=== PATIENT | male | born 1990 | race Caucasian/White ===

== ENCOUNTER 2019-02-25 02:50 | Emergency (ER) | payer OTHER ==
[2019-02-25 03:50] LABS: Barbiturates NEGATIVE (NEGATIVE); Benzodiazepines NEGATIVE (NEGATIVE); Cocaine NEGATIVE (NEGATIVE); METHAMPHETAM NEGATIVE (NEGATIVE); Methadone NEGATIVE (NEGATIVE); Opiates NEGATIVE (NEGATIVE); Phencyclidine NEGATIVE (NEGATIVE); THC Cannibis NEGATIVE (NEGATIVE)
[2019-02-25 03:58] LABS: Absolute Lymphocytes (CBC) 0.9 K/uL (0.7-4.9); Absolute Monocytes 1.3 K/uL (0.1-1.3); Absolute Neutrophil 6.2 K/uL (1.8-8.0); Basophils % 0.3 % (0-1.3); Eosinophils % 0.6 % (0-4.4); Hematocrit 41.7 % (39.6-49.0); Lymphocytes % 10.1 % (15.3-44.8); Monocytes % 15.5 % (3.3-12.3); RBC Red Blood Cell Count 4.57 M/uL (4.33-5.43)
[2019-02-25 04:01] LABS: Protime INR 1.15
[2019-02-25 04:35] LABS: ALT/SGPT 185 U/L (12-78); AST/SGOT 43 U/L (15-37); Albumin 3.9 g/dL (3.4-5.0); Alkaline Phosphatase 82 U/L (45-117); BUN Blood Urea Nitrogen 10 mg/dL (7-18); Bicarbonate 28 mmol/L (21-32); Bilirubin Direct 0.4 mg/dL (0-0.2); Bilirubin Total 1.6 mg/dL (0.2-1.0); Glucose Level 126 mg/dL (74-106); Potassium 3.6 mmol/L (3.5-5.1); Protein, Total 7.2 g/dL (6.4-8.2); Sodium Level 141 mmol/L (136-145)
[2019-02-25 05:13] LABS: Urine Blood TRACE (NEG); Urine Glucose NEGATIVE (NEG); Urine Protein 1+ (NEG)
--- NOTE | 2019-02-25 06:27 | EKG ---
Test Date: 2019-02-25 Test Time: 03:49:16 Supervisor Machine Setter: KENDRA MEASUREMENT RESULTS: Intervals: Rate: 90 DE: 128 QRSD: 92 QT: 322 QTc: 393 [place]: P: 35 DE: 128 QRS: 42 T: 36 INTERPRETIVE STATEMENTS: Normal sinus rhythm Normal ECG Compared to ECG 08/14/2016 20:02:17 Sinus arrhythmia no longer present Electronically Signed On 02-25-19 06:26:29 CDT by Jovan Trent
--- NOTE | 2019-02-25 10:35 | EDPHYS ---
Physician Documentation [facility] Name: Shubham Hdez Age: 29 yrs Sex: Male : 1990 Arrival Date: 02/25/2019 Time: 02:51 Bed 5 Private MD: ED Physician Quang Wilder HPI: 02/25 03:20 This 29 yrs old Male presents to ER via Ambulatory with complaints of mental pkl assesment. 03:20 The patient presents to the emergency department with depression. Onset: The pkl symptoms/episode began/occurred yesterday. Patient under care of Dr. Kim. Said medications not helping. Historical: - Allergies: 03:11 Amoxicillin; tl2 - Home Meds: 03:11 Depakote Oral for Depression associated with Bipolar Disorder [Active]; Lexapro Oral tl2 for Generalized Anxiety Disorder, Major Depressive Disorder [Active]; - PMHx: 03:11 ADD/ADHD; scoliosis; tourette syndrome; Depression; Anxiety; possible liver problem; tl2 hyperglycemia; - Immunization history:: Adult Immunizations. - Social history:: Smoking status: Patient uses tobacco products, denies chronic smoking, but will smoke occasionally. - Ebola Screening: : No symptoms or risks identified at this time. ROS: 03:20 Eyes: Negative for injury, pain, redness, and discharge, ENT: Negative for injury, pkl pain, and discharge, Neck: Negative for injury, pain, and swelling, Cardiovascular: Negative for chest pain, palpitations, and edema, Respiratory: Negative for shortness of breath, cough, wheezing, and pleuritic chest pain, Abdomen/GI: Negative for abdominal pain, nausea, vomiting, diarrhea, and constipation, Back: Negative for injury and pain, : Negative for injury, bleeding, discharge, and swelling, MS/Extremity: Negative for injury and deformity. 03:20 Skin: Positive for superficial lacerations left wrist. 03:20 Psych: Negative for anxiety, depression, suicide gesture, suicidal ideation. Exam: 03:20 Head/Face: Normocephalic, atraumatic. Eyes: Pupils equal round and reactive to light, pkl extra-ocular motions intact. Lids and lashes normal. Conjunctiva and sclera are non-icteric and not injected. Cornea within normal limits. Periorbital areas with no swelling, redness, or edema. ENT: Nares patent. No nasal discharge, no septal abnormalities noted. Tympanic membranes are normal and external auditory canals are clear. Oropharynx with no redness, swelling, or masses, exudates, or evidence of obstruction, uvula midline. Mucous membranes moist. Neck: Trachea midline, no thyromegaly or masses palpated, and no cervical lymphadenopathy. Supple, full range of motion without nuchal rigidity, or vertebral point tenderness. No Meningismus. Chest/axilla: Normal chest wall appearance and motion. Nontender with no deformity. No lesions are appreciated. Cardiovascular: Regular rate and rhythm with a normal S1 and S2. No gallops, murmurs, or rubs. Normal PMI, no JVD. No pulse deficits. Respiratory: Lungs have equal breath sounds bilaterally, clear to auscultation and percussion. No rales, rhonchi or wheezes noted. No increased work of breathing, no retractions or nasal flaring. Abdomen/GI: Soft, non-tender, with normal bowel sounds. No distension or tympany. No guarding or rebound. No evidence of tenderness throughout. Back: No spinal tenderness. No costovertebral tenderness. Full range of motion. Neuro: Awake and alert, GCS 15, oriented to person, place, time, and situation. Cranial nerves II-XII grossly intact. Motor strength 5/5 in all extremities. Sensory grossly intact. Cerebellar exam normal. Normal gait. 03:20 Musculoskeletal/extremity: Extremities: grossly normal except: noted in the left forearm: superficial lacerations. 04:39 Psych: Behavior/mood is cooperative, Affect is calm, Patient has no thoughts/intents to pkl harm self or others. Vital Signs: 03:11 BP 130 / 90; Pulse 110; Resp 18; Temp 98.9(TE); Pulse Ox 99% on R/A; Weight 77.11 kg; tl2 Height 5 ft. 10 in. (177.80 cm); Pain 0/10; 05:06 BP 109 / 75; Pulse 78; Resp 18; Pulse Ox 98% on R/A; tl2 09:00 BP 118 / 68; Pulse 68; Resp 15; Temp 97.8(TE); Pulse Ox 100% on R/A; Pain 0/10; hb 09:41 BP 122 / 74; Pulse 70; Resp 15; Pulse Ox 99% on R/A; Pain 0/10; hb 11:30 BP 119 / 66; Pulse 67; Resp 16; Pulse Ox 100% on R/A; Pain 0/10; hb 03:11 Body Mass Index 24.39 (77.11 kg, 177.80 cm) tl2 MDM: 02:59 Patient medically screened. pkl 07:40 Data reviewed: vital signs, nurses notes. Data interpreted: Pulse oximetry: on room air snw is 98 %. Interpretation: normal. Awaiting: Psychiatric information consultant. 08:42 Counseling: I had a detailed discussion with the patient and/or guardian regarding: snw [facility] here for assessment. 10:09 Counseling: I had a detailed discussion with the patient and/or guardian regarding: the snw historical points, exam findings, and any diagnostic results supporting the discharge/admit diagnosis, lab results, radiology results, the need to transfer to another facility, [facility] does not immediately have the required specialist. Physician consultation: Dr Landin was called at 10:10, was contacted at 10:10, regarding regarding transfer, patient's condition, to [facility] . 02/25 03:18 Order name: Acetaminophen; Complete Time: 06:21 pkl 02/25 03:18 Order name: Basic Metabolic Panel; Complete Time: 06:21 pkl 02/25 03:18 Order name: CBC with Diff; Complete Time: 06:21 pkl 02/25 03:18 Order name: ETOH Level; Complete Time: 06:21 pkl 02/25 03:18 Order name: Hepatic Function; Complete Time: 06:21 pkl 02/25 03:18 Order name: PT-INR; Complete Time: 06:21 pkl 02/25 03:18 Order name: Ptt, Activated; Complete Time: 06:21 pkl 02/25 03:18 Order name: Salicylate; Complete Time: 06:21 pkl 02/25 03:18 Order name: Urine Drug Screen; Complete Time: 06:21 pkl 02/25 03:18 Order name: EKG; Complete Time: 03:20 pkl 02/25 03:18 Order name: EKG - Nurse/Tech; Complete Time: 03:53 pkl 02/25 03:18 Order name: IV Saline Lock; Complete Time: 03:53 pkl 02/25 03:18 Order name: Labs collected and sent; Complete Time: 03:53 pkl 02/25 03:29 Order name: Urine Dipstick--Ancillary (enter results); Complete Time: 06:21 mw2 02/25 03:18 Order name: Urine Dipstick-Ancillary (obtain specimen); Complete Time: 03:53 pkl Administered Medications: No medications were administered Disposition: 19:03 Co-signature as Attending Physician, Quang Wilder MD. pkl Disposition: 02/25/19 10:34 Transfer ordered to Psych Facility. Diagnosis is Suicidal ideations. - Reason for transfer: Specialty. - Accepting physician is Dr. Landin. - Condition is Stable. - Problem is an acute exacerbation. - Symptoms are unchanged. Signatures: Dispatcher [employer] EDMS Quang Wilder MD MD pkl Leonela Jacobs, BANQUET KITCHEN SUPERVISOR-C BANQUET KITCHEN SUPERVISOR-Csnw Liana Naik, RN RN Juanita Romano RN RN tl2 Corrections: (The following items were deleted from the chart) 10:35 10:34 02/25/2019 10:34 Transfer ordered to Psych Facility. Diagnosis is Suicidal snw ideations. Reason for transfer: Specialty. Accepting physician is Dr. Priest. Condition is Stable. Problem is an acute exacerbation. Symptoms are unchanged. snw 10:36 10:09 Physician consultation: was called at 10:10, was contacted at 10:10, regarding snw regarding transfer, patient's condition, to [facility] , snw 13:17 10:35 02/25/2019 10:34 Transfer ordered to Psych Facility. Diagnosis is Suicidal hb ideations. Reason for transfer: Specialty. Accepting physician is Dr. Landin. Condition is Stable. Problem is an acute exacerbation. Symptoms are unchanged. snw
--- NOTE | 2019-02-25 10:35 | ER ---
Nurse's Notes [facility] Name: Shubham Hdez Age: 29 yrs Sex: Male : 1990 Arrival Date: 02/25/2019 Time: 02:51 Bed 5 Private MD: Diagnosis: Suicidal ideations Presentation: 02/25 03:05 Presenting complaint: Patient states: Tried to take 14 depakote pills yesterday and has tl2 two superficial lacerations to left wrist, pt reports having suicidal ideations yesterday but denies SI or HI at this time. States that his doctors have been changing his psych medications every 2 weeks for over a month. Pt is adamant that he is not suicidal at this time and does not believe he is a danger to himself. Transition of care: patient was not received from another setting of care. Onset of symptoms was February 23, 2019. Risk Assessment: Do you want to hurt yourself or someone else? Patient reports no desire to harm self or others. Other: report feeling suicidal yesterday and attempted to take 14 depakote pills. Initial Sepsis Screen: Does the patient meet any 2 criteria? HR > 90 bpm. Does the patient have a suspected source of infection? No. Patient's initial sepsis screen is negative. Care prior to arrival: None. 03:05 Method Of Arrival: Ambulatory tl2 03:05 Acuity: TREVIN 2 tl2 Triage Assessment: 03:11 General: Appears in no apparent distress. uncomfortable, Behavior is cooperative, tl2 appropriate for age, anxious, flat. Pain: Denies pain. Neuro: Level of Consciousness is awake, alert, obeys commands, Oriented to person, place, time, situation. Cardiovascular: Denies chest pain. Respiratory: Airway is patent Respiratory effort is even, unlabored, Respiratory pattern is regular, symmetrical. GI: No signs and/or symptoms were reported involving the gastrointestinal system. : No signs and/or symptoms were reported regarding the genitourinary system. Derm: Skin is pink, warm \\T\\ dry. Historical: - Allergies: 03:11 Amoxicillin; tl2 - Home Meds: 03:11 Depakote Oral for Depression associated with Bipolar Disorder [Active]; Lexapro Oral tl2 for Generalized Anxiety Disorder, Major Depressive Disorder [Active]; - PMHx: 03:11 ADD/ADHD; scoliosis; tourette syndrome; Depression; Anxiety; possible liver problem; tl2 hyperglycemia; - Immunization history:: Adult Immunizations. - Social history:: Smoking status: Patient uses tobacco products, denies chronic smoking, but will smoke occasionally. - Ebola Screening: : No symptoms or risks identified at this time. Screenin:14 Abuse screen: Denies threats or abuse. Nutritional screening: No deficits noted. tl2 Tuberculosis screening: No symptoms or risk factors identified. Fall Risk None identified. Assessment: 03:11 General: see triage assessment. tl2 05:06 Reassessment: Patient appears in no apparent distress at this time. Patient and/or tl2 family updated on plan of care and expected duration. Pain level reassessed. Patient is alert, oriented x 3, equal unlabored respirations, skin warm/dry/pink. awaiting [facility] [employer] Worker Patient denies pain at this time. Patient states feeling better. 06:47 Reassessment: Patient appears in no apparent distress at this time. Patient and/or tl2 family updated on plan of care and expected duration. Pain level reassessed. Patient is alert, oriented x 3, equal unlabored respirations, skin warm/dry/pink. 07:09 Reassessment: pt continues to wait for [facility] to arrive for evaluation. report given to master Rivera RN and Liana Albrecht RN. 08:00 Reassessment: Patient appears in no apparent distress at this time. Patient and/or hb family updated on plan of care and expected duration. Pain level reassessed. Patient is alert, oriented x 3, equal unlabored respirations, skin warm/dry/pink. 09:00 Reassessment: Patient appears in no apparent distress at this time. Patient and/or hb family updated on plan of care and expected duration. Pain level reassessed. Patient is alert, oriented x 3, equal unlabored respirations, skin warm/dry/pink. Spouse at bedside. 09:50 Reassessment: Report given to Cookie LYNN at [facility]. hb 10:00 Reassessment: Patient appears in no apparent distress at this time. Patient and/or hb family updated on plan of care and expected duration. Pain level reassessed. Patient is alert, oriented x 3, equal unlabored respirations, skin warm/dry/pink. Spouse remains at bedside. 10:14 Reassessment: Nurse to Nurse given to Deepak Lemus. iw 11:00 Reassessment: Patient appears in no apparent distress at this time. No changes from hb previously documented assessment. Patient and/or family updated on plan of care and expected duration. Pain level reassessed. Patient is alert, oriented x 3, equal unlabored respirations, skin warm/dry/pink. Spouse remains at bedside. 11:15 Reassessment: father requesting to take patient outside to have a smoke break, family iw advised that hospital policy does not allow for psych patients to leave the dept, also advised that this is a non-smoking campus and pt is not allowed to smoke outside, advised father that EMS will be here shortly to transfer pt and pt will be allowed a break outside prior to entering the ambulance. 11:30 Reassessment: father walks out of room to say "he needs a break and no one has come to iw allow him to go outside" father advised again of hospital policy and that I was unable to attend to his son due to assisting with a critical patient in another room, I told father that I will not physically stop him from leaving department if he wishes to take his son outside. Vital Signs: 03:11 BP 130 / 90; Pulse 110; Resp 18; Temp 98.9(TE); Pulse Ox 99% on R/A; Weight 77.11 kg; tl2 Height 5 ft. 10 in. (177.80 cm); Pain 0/10; 05:06 BP 109 / 75; Pulse 78; Resp 18; Pulse Ox 98% on R/A; tl2 09:00 BP 118 / 68; Pulse 68; Resp 15; Temp 97.8(TE); Pulse Ox 100% on R/A; Pain 0/10; hb 09:41 BP 122 / 74; Pulse 70; Resp 15; Pulse Ox 99% on R/A; Pain 0/10; hb 11:30 BP 119 / 66; Pulse 67; Resp 16; Pulse Ox 100% on R/A; Pain 0/10; hb 03:11 Body Mass Index 24.39 (77.11 kg, 177.80 cm) tl2 ED Course: 02:51 Patient arrived in ED. es 02:59 Quang Wilder MD is Attending Physician. pkl 03:08 Triage completed. tl2 03:11 Arm band placed on right wrist. tl2 03:14 Patient has correct armband on for positive identification. Bed in low position. Call tl2 light in reach. Side rails up X 1. Adult w/ patient. 03:53 Juanita Romano, RN is Primary Nurse. tl2 03:53 Initial lab(s) drawn, by me, sent to lab. Inserted saline lock: 20 gauge in right tl2 antecubital area, using aseptic technique. Blood collected. 05:16 notified [facility] to arrange for a screener to evaluate the patient. mw2 06:48 Leonela Jacobs FNP-C is PHCP. snw Administered Medications: No medications were administered Outcome: 10:34 ER care complete, transfer ordered by MD. snw 13:17 Patient left the ED. hb Signatures: Quang Wilder MD MD pkLeonela Reveles FNP-C MEAT CURER-Csnw Zayda Sequeira Irene, RN RN Lili Busch RN RN ak1 Liana Naik RN RN Juanita Romano RN RN tl2 Tomi Pinzon mw2 Corrections: (The following items were deleted from the chart) 04:18 03:11 BP 130 / 90; Pulse 110bpm; Resp 18bpm; Pulse Ox 99% RA; 77.11 kg; Height 5 ft. 10 tl2 in.; BMI: 24.3; Pain 0/10; tl2 11:41 09:00 Reassessment: Patient appears in no apparent distress at this time. Patient hb and/or family updated on plan of care and expected duration. Pain level reassessed. Patient is alert, oriented x 3, equal unlabored respirations, skin warm/dry/pink. hb 11:41 10:00 Reassessment: Patient appears in no apparent distress at this time. Patient hb and/or family updated on plan of care and expected duration. Pain level reassessed. Patient is alert, oriented x 3, equal unlabored respirations, skin warm/dry/pink. hb 11:41 11:00 Reassessment: Patient appears in no apparent distress at this time. No changes hb from previously documented assessment. Patient and/or family updated on plan of care and expected duration. Pain level reassessed. Patient is alert, oriented x 3, equal unlabored respirations, skin warm/dry/pink. hb
[2019-02-25 13:25] VITALS: TEMP 97.8
[2019-02-25 13:28] VITALS: BP 119/66; O2SAT 100
== END 2019-02-25 13:17 ==
LOC: ER 02:50
DX: R45.851 Suicidal ideations (principal); F32.9 Major depressive disorder, single episode, unspecified; F41.9 Anxiety disorder, unspecified; Z88.1 Allergy status to other antibiotic agents
CPT/HCPCS: 36415; 80048; 80076; 80307; 80320; 80329; 81003; 85025; 85610; 85730; 93005; 99283